=== PATIENT | female | born 1980 | race Caucasian/White ===

== ENCOUNTER 2018-03-26 05:18 | Observation (INO) | payer MEDICAID ==
[~2018-03-26] VITALS: Ht 149.9 cm; Wt 49.9 kg
[~2018-03-26 05:18] MED LIST: CEFAZOLIN 2,000 MG in DEXT 5% WATER 100 ML IV PRN; PREN-134 PO
[2018-03-26] MEDS: LACTATED RINGERS 1,000 ML IV SCH ×3 (06:00→13:42)
[2018-03-26] MEDS ORDERED: CEFAZOLIN 2,000 MG in DEXT 5% WATER 100 ML IV PRN (06:00)
[2018-03-26 06:37] LABS: BASOPHILS % 0.3 % (0.0-2.0); EOSINOPHILS % 2.1 % (0.0-5.0); HEMATOCRIT. 33.4 % (36.0-48.0); HEMOGLOBIN. 11.6 g/dL (12.0-16.0); LYMPHOCYTES % 12.8 % (20.0-50.0); MEAN CORPUSCULAR VOLUME 94.9 fL (81.0-99.0); MEAN PLATELET VOLUME 6.7 fl (7.4-10.4); MONOCYTES % 10.7 % (2.0-8.0); NEUTROPHILS % 74.1 % (40.0-76.0); PLATELET 370 x1000/uL (130-400); RED BLOOD CELL COUNT 3.52 mill/uL (4.2-5.4); RED CELL DISTRIBUTION WIDTH 12.6 % (11.6-14.6)
[2018-03-26 06:38] LABS: CLARITY URINE TURBID (CLEAR); COLOR URINE YELLOW (YELLOW); KETONES URINE NEGATIVE (NEGATIVE); LEUKOCYTE ESTERASE URINE 3+ (NEGATIVE); NITRITE URINE NEGATIVE (NEGATIVE); OCCULT BLOOD URINE NEGATIVE (NEGATIVE); PH URINE 6.5 (4.5-8.0); PROTEIN URINE NEGATIVE (NEGATIVE); SPECIFIC GRAVITY URINE 1.017 (1.005-1.030); UROBILINOGEN URINE 0.2 E.U./dL (0.2-1.0)
[2018-03-26] MEDS ORDERED: INDOMETHACIN 50MG CAPSULE PO PRN (06:40)
[2018-03-26 06:42] LABS: CHLORIDE 105 mEq/L (98-107)
[2018-03-26 06:45] LABS: PARTIAL THROMBOPLASTIN TIME 25.5 sec (23.4-31.0); PROTHROMBIN TIME 9.9 sec (9.4-11.6)
[2018-03-26] MEDS ORDERED: KETOROLAC 30MG/ML VIAL ONE (08:14)
[2018-03-26] MEDS ORDERED: ONDANSETRON HCL 4MG/2ML VIAL ONE (08:14)
[2018-03-26] MEDS ORDERED: KETOROLAC 30MG/ML VIAL IV PRN (08:45)
[2018-03-26] MEDS ORDERED: PROG100I2 VG (09:25)
[2018-03-26] MEDS ORDERED: NIFE10CA PO (09:25)
[2018-03-26] MEDS ORDERED: LORA10CA PO (09:25)
[2018-03-26 10:45] VITALS: BP 107/64
[2018-03-26] MEDS ORDERED: INDOMETHACIN 25MG CAPSULE PO SCH (14:00)
== END 2018-03-26 13:00 | disposition home or self-care (01) ==
LOC: OR 05:18 → L&D 08:47
PROVIDERS: ADMIT Acupuncturist; ATTEND Acupuncturist
DX: O26.872 Cervical shortening, second trimester (principal); O34.32 Maternal care for cervical incompetence, second trimester; O09.212 Supervision of pregnancy with history of pre-term labor, second trimester; Z3A.21 21 weeks gestation of pregnancy
CPT/HCPCS: 36415; 59320; 80048; 81003; 85025; 85384; 85610; 85730; 96374; G0378; J1885; J2405; J7120

== ENCOUNTER 2018-07-10 18:13 | Observation (INO) | payer MEDICAID ==
[~2018-07-10] VITALS: Ht 149.9 cm; Wt 60.8 kg
[~2018-07-10 18:13] MED LIST changes: -CEFAZOLIN 2,000 MG in DEXT 5% WATER 100 ML IV PRN; +LORA10CA PO; +NIFE10CA PO; +PROG100I2 VG
[2018-07-10] MEDS ORDERED: MAGN400T26 PO (18:53)
[2018-07-10] MEDS ORDERED: MEPERIDINE HCL/PF 50MG/ML CPJ IV SCH (19:00)
[2018-07-10] MEDS ORDERED: LACTATED RINGERS 1,000 ML IV SCH (19:05)
[2018-07-10 19:31] VITALS: BP 134/85
== END 2018-07-10 21:15 | disposition home or self-care (01) ==
LOC: L&D 18:13
PROVIDERS: ADMIT Acupuncturist; ATTEND Acupuncturist
DX: O36.8130 Decreased fetal movements, third trimester, not applicable or unspecified (principal); O09.523 Supervision of elderly multigravida, third trimester; Z3A.36 36 weeks gestation of pregnancy
CPT/HCPCS: 88300; 96360; 96361; 99281; G0378; J2175; 59871; 96374; J7120